=== PATIENT | female | born 1955 | race Caucasian/White ===

== ENCOUNTER 2018-06-28 19:52 | Emergency (ER) | payer OTHER ==
[~2018-06-28] VITALS: Ht 162.6 cm; Wt 65.9 kg
[2018-06-28 19:57] VITALS: Ht 162.6 cm; Wt 65.9 kg
[2018-06-28] MEDS ORDERED: DILANTIN100 MG (20:07)
[2018-06-28] MEDS ORDERED: KEPPRA1000 MG PO (20:07)
[2018-06-28] MEDS ORDERED: GABAPENTIN100 MG PO (20:07)
[2018-06-28] MEDS ORDERED: GABAPENTIN100 MG (20:07)
[2018-06-28] MEDS ORDERED: [UNRECOGNIZED DRUG - OTHER] (20:08)
[2018-06-28 21:21] LABS: BASOPHILS 0.3 % (0-2); EOSINOPHILS 0.6 % (0-7); HEMATOCRIT 34.1 % (36.0-48.0); HEMOGLOBIN 11.6 g/dL (12-16); MCH 32.3 pg (26.0-34.0); MEAN PLATELET VOLUME 9.6 fL (7.4-10.4); MONOCYTES 8.7 % (2-11); NEUTROPHILS 64.4 % (40-80); PLATELET COUNT 244 10x3/uL (130-400); RBC 3.59 10x6/uL (4.00-5.40); WBC 3.1 10x3/uL (4.8-10.8)
[2018-06-28 21:38] LABS: INR 1.1 (0.85-1.17); PROTIME 13.8 SECONDS (11.6-15.0)
[2018-06-28 22:03] LABS: APPEARANCE CLEAR (CLEAR); COLOR YELLOW (YELLOW); GLUCOSE NEGATIVE (NEGATIVE); NITRITE NEGATIVE (NEGATIVE); PROTEIN NEGATIVE (NEGATIVE)
[2018-06-28 22:04] LABS: BACTERIA NONE SEEN /hpf (NONE SEEN); BILIRUBIN NEGATIVE (NEGATIVE); EPITHELIAL CELLS OCC /hpf (0-5); KETONE SMALL mg/dL (NEGATIVE); RED CELLS - URINE NONE SEEN /hpf (0-5); UROBILINOGEN NORMAL (NORMAL); WHITE CELLS - URINE RARE /hpf (0-5)
[2018-06-28] MEDS ORDERED: PHENERGAN25 MG RC (22:57)
[2018-06-28 23:12] LABS: ALBUMIN 3.3 g/dL (3.4-5.0); ALKALINE PHOSPHATASE 131 U/L (46-116); ALT (SGPT) 30 U/L (10-68); AMYLASE - SERUM 47 U/L (25-115); BILIRUBIN - TOTAL 0.28 mg/dL (0.2-1.3); CALC OSMOLALITY 284 mosm/kg (275-300); CALCIUM 8.8 mg/dL (8.5-10.1); CARBON DIOXIDE 24.7 mmol/L (21.0-32.0); CHLORIDE - SERUM 104 mmol/L (98-107); CREATININE - SERUM 0.9 mg/dL (0.6-1.3); GLUCOSE 87 mg/dL (74-106); LIPASE 160 U/L (73-393); PHENYTOIN (DILANTIN) 2.4 ug/mL (10.0-20.0); POTASSIUM - SERUM 3.7 mmol/L (3.5-5.1); PRO BNP 280 pg/mL (0-125); SODIUM 143 mmol/L (136-145); THYROID STIMULATING HORMONE 2.35 uIU/mL (0.36-3.74); TROPONIN-I < 0.017 ng/mL (0.000-0.060); UREA NITROGEN 15 mg/dL (7-18); eGFR NON AFRICAN AMERICAN 67 mL/min (90-120)
[2018-06-28] MEDS ORDERED: PEPCID40 MG PO (23:19)
[2018-06-29 00:17] VITALS: BP 169/76
== END 2018-06-29 00:24 | disposition home or self-care (01) ==
LOC: D.ER 19:52
PROVIDERS: Emergency Medicine
DX: R11.2 Nausea with vomiting, unspecified (principal); A08.4 Viral intestinal infection, unspecified; S06.0X0A Concussion without loss of consciousness, initial encounter; W18.30XA Fall on same level, unspecified, initial encounter; Y93.89 Activity, other specified; Y92.019 Unspecified place in single-family (private) house as the place of occurrence of the external cause; T42.0X6A Underdosing of hydantoin derivatives, initial encounter; Z91.138 Patient's unintentional underdosing of medication regimen for other reason; G40.909 Epilepsy, unspecified, not intractable, without status epilepticus